=== PATIENT | female | born 1980 | race Caucasian/White ===

== ENCOUNTER 2021-04-09 19:23 | Emergency (ER) | payer SELFPAY ==
[~2021-04-09] VITALS: Ht 162.6 cm; Wt 74.8 kg
[~2021-04-09 19:23] MED LIST: PREN1TAB14 PO
[2021-04-09 19:45] LABS: BILIRUBIN,URINE NEGATIVE (NEGATIVE); CLARITY,URINE CLEAR; COLOR,URINE YELLOW; GLUCOSE, URINE (UA) NEGATIVE (NEGATIVE); KETONES,URINE NEGATIVE (NEGATIVE); LEUKOCYTE ESTERASE ,URINE 1+ (NEGATIVE); NITRITE,URINE NEGATIVE (NEGATIVE); PROTEIN,URINE NEGATIVE (NEGATIVE)
[2021-04-09 19:53] LABS: BASOPHILS % (AUTO) 0 % (0-10); EOSINOPHILS # (AUTO) 0.1 10^3/uL (0.0-0.3); EOSINOPHILS % (AUTO) 1 % (0-10); HEMATOCRIT 34 % (35-52); HEMOGLOBIN 9.9 g/dL (11.5-16.0); LYMPHOCYTES # (AUTO) 1.9 10^3/uL (1.0-4.0); LYMPHOCYTES % (AUTO) 31 % (12-44); MEAN CORPUSCULAR HEMOGLOBIN 24 pg (25-34); MEAN CORPUSCULAR HGB CONC 29 g/dL (32-36); MEAN CORPUSCULAR VOLUME 82 fL (80-99); MEAN PLATELET VOLUME 10.5 fL (9.0-12.2); MONOCYTES # (AUTO) 0.5 10^3/uL (0.0-1.0); MONOCYTES % (AUTO) 8 % (0-12); NEUTROPHILS # (AUTO) 3.6 10^3/uL (1.8-7.8); NEUTROPHILS % (AUTO) 60 % (42-75); PLATELET COUNT 149 10^3/uL (130-400)
[2021-04-09 19:55] LABS: BACTERIA,URINE NEGATIVE /HPF; WBC,URINE 0-2 /HPF
[2021-04-09 20:07] LABS: BILIRUBIN,TOTAL 0.3 MG/DL (0.1-1.0); CALCIUM 9.5 MG/DL (8.5-10.1); CREATININE SERUM 0.78 MG/DL (0.60-1.30); POTASSIUM 3.5 MMOL/L (3.6-5.0); TOTAL PROTEIN 6.8 GM/DL (6.4-8.2)
--- NOTE | 2021-04-09 20:14 | ED GU-Female ---
General Chief Complaint: - Reproductive Stated Complaint: PELVIC PAIN Nursing Triage Note: PT AMB TO RM 2 W C/O LOWER ABD/PELVIC PAIN SX 1900. PT REPORTS SHE WAS HAVING INTERCOURSE W HER AND IMMEDIATELY AFTER SHE BEGAN EXPERIENCING 10/10 PAIN IN STATED AREAS AND NAUSEA. 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 PT DENIES NAUSEA AT THIS TIME. Source: patient History of Present Illness Date Seen by Provider: Apr 09, 2021 Time Seen by Provider: 19:30 Initial Comments PT ARRIVES VIA POV FROM HOME PT STATES THAT TONIGHT AT 1900, IMMEDIATELY AFTER HAVING NORMAL INTERCOURSE WITH ,SHE BEGAN TO HAVE SEVERE PELVIC/LOWER ABDOMINAL PAIN--STATES "SHARP PAIN IN MY OVARIES" STATES HER ABDOMEN FELT LIKE IT WAS HARDENING OFF AND ON "LIKE CONTRACTIONS" STATES HER ABDOMEN IS SOFT NOW, AND NO LONGER "ANNEL" DID NOT HAVE ANY PAIN DURING INTERCOURSE NO RADIATION OF PAIN SLIGHT NAUSEA, NO VOMITING HAD NORMAL BM TODAY HAD SLIGHT BURNING ON URINATION AFTER INTERCOURSE, BUT NO URINARY SYMPTOMS PRIOR NO VAGINAL DISCHARGE NO VAGINAL BLEEDING NO HISTORY OF SIMILAR NO PRIOR ABDOMINAL SURGERIES OR GI OR TICKETING AGENT PROBLEMS LMP 2 WEEKS AGO, NORMAL. NO CONTROL TOOK 3 MIDOL PRIOR TO ARRIVAL PAIN IS WORSE WITH WALKING, BETTER WITH LAYING DOWN OR SITTING. RATES PAIN 3/10 NOW PCP: DR. DOMINGUEZ Allergies and Home Medications Allergies Coded Allergies: No Known Drug Allergies (Unverified , 11/09/12) Patient Home Medication List Home Medication List Reviewed: Yes Vits W-Ca,Fe,Fa(<1MG) ( Vitamins) 1 Each Tablet, 1 EACH PO DAILY, (Reported) Entered as Reported by: CANELO BROUSSARD on 11/10/12 0119 Review of Systems Review of Systems Constitutional: no symptoms reported Respiratory: no symptoms reported Cardiovascular: no symptoms reported Gastrointestinal: see HPI Genitourinary: see HPI : No LMP: Mar 26, 2021 Musculoskeletal: no symptoms reported; No back pain Skin: no symptoms reported Psychiatric/Neurological: No Symptoms Reported Endocrine: No Symptoms Reported Hematologic/Lymphatic: No Symptoms Reported Past Iedxitn-Xebopp-Zmozjy Hx Patient Social History Tobacco Use?: No Smoking Status: Never a Smoker Use of E-Cig and/or Vaping dev: No Substance use?: No Alcohol Use?: No Pt feels they are or have been: No Immunizations Up To Date First/Initial COVID19 Vaccinat: 08/12/2020 Second COVID19 Vaccination Jaylan: 09/01/2020 COVID19 Vaccine Park Manager: PFIZER Past Medical History Surgeries: No Respiratory: No Cardiac: No Neurological: No : No Last Menstrual Period: Mar 26, 2021 Reproductive Disorders: No Genitourinary: No Gastrointestinal: No Musculoskeletal: No Endocrine: No HEENT: No Cancer: No Psychosocial: No Integumentary: No Blood Disorders: No Physical Exam Vital Signs Vital Signs - First Documented 04/09/21 19:29 Temp 36.4 Pulse 75 Resp 18 B/P (MAP) 117/66 (83) Pulse Ox 100 Capillary Refill : Less Than 3 Seconds Height, Weight, BMI Height: '" Weight: lbs. oz. kg; 28.00 BMI Method: General Appearance: WD/WN, other (WALKS SLOWLY, SLIGHTLY BENT AT WAIST. BUT ABLE TO LAY FLAT AND OUTSTRETCHED WITHOUT DIFFICULTY) Cardiovascular: regular rate, rhythm, no murmur Respiratory: normal breath sounds, no respiratory distress, no accessory muscle use Gastrointestinal: normal bowel sounds, soft, no organomegaly, no pulsatile mass; No distended, No guarding, No rebound; tenderness (MILD DIFFUSE LOWER ABDOMINAL TENDERNESS); No hernia, No mass Pelvic: normal external exam, no cerv. 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, no motor/sensory deficits, alert, normal mood/affect, oriented x 3 Skin: normal color, warm/dry; No rash; tattoos/piercings (TATTOOS) Progress/Results/Core Measures Suspected Sepsis SIRS Temperature: Pulse: 75 Respiratory Rate: 18 Laboratory Tests 04/09/21 19:39: White Blood Count 6.0 Blood Pressure 117 /66 Mean: 83 Laboratory Tests 04/09/21 19:39: Creatinine 0.78, Platelet Count 149, Total Bilirubin 0.3 Results/Orders Lab Results Laboratory Tests Test 04/09/21 19:30 04/09/21 19:39 04/09/21 21:09 Range/Units Urine Color YELLOW Urine Clarity CLEAR Urine pH 7.0 5-9 Urine Specific [place] 1.010 L 1.016-1.022 Urine Protein NEGATIVE NEGATIVE Urine Glucose (UA) NEGATIVE NEGATIVE Urine Ketones NEGATIVE NEGATIVE Urine Nitrite NEGATIVE NEGATIVE Urine Bilirubin NEGATIVE NEGATIVE Urine Urobilinogen 0.2 < = 1.0 MG/DL Urine Leukocyte Esterase 1+ H NEGATIVE Urine RBC (Auto) TRACE-I NEGATIVE Urine RBC NONE /HPF Urine WBC 0-2 /HPF Urine Squamous Epithelial Cells 2-5 /HPF Urine Renal Epithelial Cells NONE /HPF Urine Crystals NONE /LPF Urine Bacteria NEGATIVE /HPF Urine Casts NONE /LPF Urine Mucus NEGATIVE /LPF Urine Culture Indicated NO White Blood Count 6.0 4.3-11.0 10^3/uL Red Blood Count 4.17 3.80-5.11 10^6/uL Hemoglobin 9.9 L 11.5-16.0 g/dL Hematocrit 34 L 35-52 % Mean Corpuscular Volume 82 80-99 fL Mean Corpuscular Hemoglobin 24 L 25-34 pg Mean Corpuscular Hemoglobin Concent 29 L 32-36 g/dL Red Cell Distribution Width 14.9 H 10.0-14.5 % Platelet Count 149 130-400 10^3/uL Mean Platelet Volume 10.5 9.0-12.2 fL Immature Granulocyte % (Auto) 0 % Neutrophils (%) (Auto) 60 42-75 % Lymphocytes (%) (Auto) 31 12-44 % Monocytes (%) (Auto) 8 0-12 % Eosinophils (%) (Auto) 1 0-10 % Basophils (%) (Auto) 0 0-10 % Neutrophils # (Auto) 3.6 1.8-7.8 10^3/uL Lymphocytes # (Auto) 1.9 1.0-4.0 10^3/uL Monocytes # (Auto) 0.5 0.0-1.0 10^3/uL Eosinophils # (Auto) 0.1 0.0-0.3 10^3/uL Basophils # (Auto) 0.0 0.0-0.1 10^3/uL Immature Granulocyte # (Auto) 0.0 0.0-0.1 10^3/uL Sodium Level 140 135-145 MMOL/L Potassium Level 3.5 L 3.6-5.0 MMOL/L Chloride Level 106 98-107 MMOL/L Carbon Dioxide Level 23 21-32 MMOL/L Anion Gap 11 5-14 MMOL/L Blood Urea Nitrogen 12 7-18 MG/DL Creatinine 0.78 0.60-1.30 MG/DL Estimat Glomerular Filtration Rate 83 BUN/Creatinine Ratio 15 Glucose Level 108 H 70-105 MG/DL Calcium Level 9.5 8.5-10.1 MG/DL Corrected Calcium 9.5 8.5-10.1 MG/DL Total Bilirubin 0.3 0.1-1.0 MG/DL Aspartate Amino Transf (AST/SGOT) 17 5-34 U/L Alanine Aminotransferase (ALT/SGPT) 11 0-55 U/L Alkaline Phosphatase 84 40-136 U/L Total Protein 6.8 6.4-8.2 GM/DL Albumin 4.0 3.2-4.5 GM/DL Amylase Level 58 25-125 U/L Lipase 17 8-78 U/L My Orders Orders - ALCON ROTHMAN DO Urine Bedside (04/09/21 19:31) Ua Culture If Indicated (04/09/21 19:31) Ed Iv/Invasive Line Start (04/09/21 19:37) Amylase (04/09/21 19:37) Cbc With Automated Diff (04/09/21 19:37) Comprehensive Metabolic Panel (04/09/21 19:37) Lipase (04/09/21 19:37) Acute Abd Series (04/09/21 20:08) Iohexol Injection (Omnipaque 350 Mg/Ml 1 (04/09/21 20:30) Received Contrast (Hold Metformin- Contr (04/09/21 20:30) Ns (Ivpb) (Sodium Chloride 0.9% Ivpb Bag (04/09/21 20:30) Ct Abd/Pelv W (Appendicitis) (04/09/21 ) Ceftriaxone (Rocephin) (04/09/21 21:15) Azithromycin Tablet (Zithromax Tablet) (04/09/21 21:15) Neisseria Gonorrhea Swab (04/09/21 21:11) Chlam Dna Probe (04/09/21 21:11) Genital Culture (04/09/21 21:11) Wet Prep (04/09/21 21:11) José Miguel Prep (04/09/21 21:11) Medications Given in ED Current Medications Medications Dose Ordered Sig/Stanislaw Route Start Time Stop Time Status Last Admin Dose Admin Iohexol 100 ml ONCE ONCE IV 04/09/21 20:30 04/09/21 20:31 DC 04/09/21 20:36 88 ML Sodium Chloride 100 ml ONCE ONCE IV 04/09/21 20:30 04/09/21 20:31 DC 04/09/21 20:36 80 ML Vital Signs/I&O 04/09/21 19:29 Temp 36.4 Pulse 75 Resp 18 B/P (MAP) 117/66 (83) Pulse Ox 100 Capillary Refill : Less Than 3 Seconds Blood Pressure Mean: 83 Progress Note : Progress Note OFFERED PAIN MEDICATIONS IN ER AND RX FOR PAIN MEDICATIONS FOR HOME, AND PT DECLINES. STATES PAIN IS DOWN TO A 2/[address] ABDOMEN/PELVIS--PER RADIOLOGIST REPORT AT 2057 FINDINGS: Lower chest: The lung bases are clear. No pericardial or pleural effusion. Peritoneum: No free intraperitoneal air or fluid. Liver and biliary system: The liver is normal. The gallbladder is normal. No biliary duct dilation. Spleen and Pancreas: Spleen is normal. The pancreas enhances normally without mass lesion or peripancreatic inflammatory changes. Adrenals: Normal. tract: The kidneys enhance normally without suspicious mass or obstruction. Urinary bladder is distended without wall thickening. Bilateral rim-enhancing ovarian cysts, the largest is on the left measuring 2.4 x 1.8 cm. Uterus is normal in appearance. GI tract: Stomach is filled with fluid and food debris and there is no wall thickening. No bowel obstruction. No pericolonic inflammatory changes. Moderate volume of colonic stool. Normal appendix. Vasculature and Lymph nodes: Normal caliber aorta. No abdominal or pelvic lymphadenopathy. Musculoskeletal: No concerning osseous lesion. IMPRESSION: 1. Normal appendix. 2. Bilateral rim-enhancing ovarian cysts most compatible with physiologic follicles, the largest measures 2.5 cm on the left. 3. Moderate volume of colonic stool. Reviewed: Reviewed by Me Departure Impression Primary Impression: Acute pelvic pain, female Additional Impression: Cervicitis Disposition: HOME, SELF-CARE Condition: Improved Departure-Patient Inst. Decision time for Depature: 21:05 Referrals: MATTIE DOMINGUEZ MD (PCP/Family) Primary Care Physician Patient Instructions: Pelvic Pain (DC) Add. Discharge Instructions: HOME, REST NO INTERCOURSE UNTIL YOUR PAIN IS COMPLETELY GONE TYLENOL AND MOTRIN NEEDED FOR PAIN FOLLOW UP WITH YOUR DR IN 2-3 DAYS IF NO BETTER, RETURN TO ER IF WORSE All discharge instructions reviewed with patient and/or family. Voiced understanding. ALCON ROTHMAN DO Apr 09, 2021 20:14
[2021-04-09] MEDS ORDERED: NS 100 ML (IVPB) BAG IV ONE (20:30)
[2021-04-09] MEDS ORDERED: HOLD METFORMIN - RECEIVED CONTRAST 20 ML VIAL IV SCH (20:30)
[2021-04-09] MEDS ORDERED: IOHEXOL 350 MG/ML 100 ML (OMNIPAQUE 350) VIAL IV ONE (20:30)
--- NOTE | 2021-04-09 20:44 | Diagnostic Imaging Report ---
INDICATION: Abdominal pain. COMPARISON: None available. FINDINGS: Lungs are clear. No pleural effusion or pneumothorax. Normal cardiac silhouette. No free intraperitoneal air. Nonobstructive bowel gas pattern. A moderate amount of stool is present in the colon. Normal regional skeleton. IMPRESSION: 1. Nonobstructive bowel gas pattern and no free intraperitoneal air. 2. Moderate volume of colonic stool. Dictated by: Dictated on workstation # [id number]
--- NOTE | 2021-04-09 20:51 | Diagnostic Imaging Report ---
CT ABD/PELV W (APPENDICITIS) TECHNIQUE: Multiple contiguous axial images were obtained through the abdomen and pelvis after administration of intravenous contrast. All CT scans use one or more of the following dose optimizing techniques: automated exposure control, MA and/or KvP adjustment based on patient size and exam type or iterative reconstruction. INDICATION: Abdominal pain COMPARISON: None available. FINDINGS: Lower chest: The lung bases are clear. No pericardial or pleural effusion. Peritoneum: No free intraperitoneal air or fluid. Liver and biliary system: The liver is normal. The gallbladder is normal. No biliary duct dilation. Spleen and Pancreas: Spleen is normal. The pancreas enhances normally without mass lesion or peripancreatic inflammatory changes. Adrenals: Normal. tract: The kidneys enhance normally without suspicious mass or obstruction. Urinary bladder is distended without wall thickening. Bilateral rim-enhancing ovarian cysts, the largest is on the left measuring 2.4 x 1.8 cm. Uterus is normal in appearance. GI tract: Stomach is filled with fluid and food debris and there is no wall thickening. No bowel obstruction. No pericolonic inflammatory changes. Moderate volume of colonic stool. Normal appendix. Vasculature and Lymph nodes: Normal caliber aorta. No abdominal or pelvic lymphadenopathy. Musculoskeletal: No concerning osseous lesion. IMPRESSION: 1. Normal appendix. 2. Bilateral rim-enhancing ovarian cysts most compatible with physiologic follicles, the largest measures 2.5 cm on the left. 3. Moderate volume of colonic stool. Dictated by: Dictated on workstation # [id number]
[2021-04-09] MEDS ORDERED: AZITHROMYCIN 250 MG TAB (ZITHROMAX) PO ONE (21:15)
[2021-04-09] MEDS ORDERED: cefTRIAXone 1,000 MG in WATER (STERILE) FOR INJECTION 10 ML IV ONE (21:15)
[2021-04-09 21:40] VITALS: BP 117/77
== END 2021-04-09 21:40 | disposition home or self-care (01) ==
LOC: EDUNIT# 19:23 → ER 19:24
DX: R10.2 Pelvic and perineal pain (principal); N72 Inflammatory disease of cervix uteri
CPT/HCPCS: 36415; 74022; 74177; 80053; 81000; 82150; 83690; 84703; 85025; 87070; 87205; 87210; 87220; 87491; 87591